=== PATIENT | male | born 1995 | race Asian ===

== ENCOUNTER 2017-11-02 19:17 | Emergency (ER) | payer OTHER ==
[~2017-11-02] VITALS: Ht 175.3 cm; Wt 75.0 kg
[2017-11-02 19:30] VITALS: BP 141/82; TEMP 100.8
[2017-11-02 20:29] VITALS: PULSE 87
== END 2017-11-02 20:40 | disposition home or self-care (01) ==
LOC: COL.ER 19:17
DX: J36 Peritonsillar abscess (principal)